=== PATIENT | male | born 1960 | race Caucasian/White ===

== ENCOUNTER 2019-12-17 17:13 | Emergency (ER) | payer OTHER, SELFPAY ==
[~2019-12-17] VITALS: Ht 170.2 cm; Wt 152.5 kg
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
--- NOTE | 2019-12-17 17:31 | NUR ---
DR. HUNT AT BEDSIDE FOR EVALUATION, AWAITING ORDERS.
--- NOTE | 2019-12-17 18:06 | NUR ---
PT REQUESTING PAIN MEDICATION AT THIS TIME, DISCUSSED WITH DR. ALFRED, AWAITING ORDERS
[2019-12-17] MEDS ORDERED: KETOROLAC 60 MG/2 ML ONE (18:17)
--- NOTE | 2019-12-17 18:20 | NUR ---
PT MEDICATED NOTED PER DR. HUNT FOR 11/19 PAIN. RESTING COMFORTABLY. VSS. SR ON MONITOR. CALL LIGHT IN REACH. DENIES NEED TO USE RESTROOM. FALL PRECAUTIONS IN PLACE
[2019-12-17] MEDS ORDERED: KETOROLAC 30 MG/1 ML IM ONE (18:30)
--- NOTE | 2019-12-17 18:56 | NUR ---
PT UP FOR RECHECK, REPORTS "PAIN IS A LOT BETTER, LIKE ." BEDSIDE REPORT AND TRANSFER OF CARE TO GRIFFIN JACOBO AT THIS TIME.
[2019-12-17 19:18] VITALS: BP 138/77
--- NOTE | 2019-12-17 19:19 | NUR ---
REPORT OF PT FROM ODALIS HUNT AND ASSUMING CARE OF PT AT THIS TIME.
--- NOTE | 2019-12-17 19:34 | NUR ---
Patient given discharge instructions and prescription and they have confirmed that they understand the instructions. cab voucher provided to patient. Patient ambulatory with use of cane from ED.
== END 2019-12-17 19:35 | disposition home or self-care (01) ==
LOC: ED 18:48
DX: R07.89 Other chest pain (principal); M79.622 Pain in left upper arm; M79.621 Pain in right upper arm; E11.9 Type 2 diabetes mellitus without complications; J44.9 Chronic obstructive pulmonary disease, unspecified; I50.9 Heart failure, unspecified; Y04.8XXA Assault by other bodily force, initial encounter; Y93.89 Activity, other specified; Y92.098 Other place in other non-institutional residence as the place of occurrence of the external cause; Y99.8 Other external cause status
CPT/HCPCS: 71046; 93005; 96372; 99283; J1885